=== PATIENT | male | born 1990 | race Caucasian/White ===

== ENCOUNTER 2025-07-23 19:14 | Emergency (ER) | payer BC ==
[2025-07-23] MEDS ORDERED: levETIRAcetam 500 MG (5 mL) VIAL ONE (19:45)
[2025-07-23 20:03] LABS: #Basophils 0.08 10x3/uL (0.0-0.2); #Eosinophils 0.19 10x3/uL (0.0-0.5); #Monocytes 0.84 10x3/uL (0.0-1.1); #Neutrophils 9.18 10x3/uL (1.5-8.4); %Basophils 0.7 % (0.0-2.0); %Eosinophils 1.6 % (0.0-6.0); %Lymphocytes 10.3 % (18.0-47.0); %Monocytes 7.3 % (0.0-10.0); %Neutrophils 79.8 % (40.0-75.0); Hematocrit 38.1 % (38.8-50.0); Hemoglobin 13.5 g/dL (13.5-17.5); Mean Corpuscular Hemoglobin 29.6 pg (27.0-33.0); Mean Corpuscular Volume 83.6 fL (81.2-95.1); Platelet Count 251 10x3/uL (150-450); Red Blood Cell (RBC) Count 4.56 10x6/uL (4.32-5.72); White Blood Cell (WBC) Count 11.52 10x3/uL (3.5-10.5)
[2025-07-23 20:14] LABS: ALT (SGPT) 24 U/L (Less than 45); AST (SGOT) 31 U/L (11-34); Acetaminophen Less than 10 mcg/mL (Less than 10); Albumin 3.8 g/dL (3.1-4.5); Alkaline Phosphatase 84 U/L (40-110); Anion Gap 15 mmol/L (10-20); BUN (Urea Nitrogen) 23 mg/dL (8.9-20.6); Bilirubin, Total 0.3 mg/dL (0.3-1.2); Calc. Creatinine Clearance 0 mL/min (70-130); Calcium 9.0 mg/dL (7.8-10.44); Carbon Dioxide 24 mmol/L (22-29); Chloride 105 mmol/L (98-107); Globulin 2.6 g/dL (2.4-3.5); Glucose 107 mg/dL (70-105); Potassium 4.2 mmol/L (3.5-5.1); Salicylate Less than 8.0 mg/dL (Less than 8.0); Sodium 140 mmol/L (136-145)
[2025-07-23 20:44] LABS: Cocaine Metabolite Screen Negative (Negative); THC/Cannabinoid Screen PRELIM POSITIVE (Negative); Tricyclic Screen Negative (Negative)
== END 2025-07-23 23:00 | disposition home or self-care (01) ==
LOC: CSHERS 19:14
DX: R56.9 Unspecified convulsions (principal)
CPT/HCPCS: 70450; 80053; 80306; 80307; 83605; 84146; 85025; 96374; J1953